=== PATIENT | female | born 1935 | race Two or more races ===

== ENCOUNTER 2018-08-13 15:34 | Inpatient (IN) | payer MEDICARE, OTHER ==
[2018-08-13] VITALS: BP 132/69
[~2018-08-13] VITALS: Ht 172.7 cm; Wt 71.5 kg
[2018-08-13 07:59] VITALS: BP 145/84
[2018-08-13 17:01] LABS: BASO # 0.1 x10^3/uL (0.0-0.2); BASO % 1 % (0-3); EOS # 0.2 x10^3/uL (0.0-0.7); EOS % 3 % (0-3); HEMATOCRIT 20.8 % (36.0-47.0); LYMPH # 1.6 x10^3/uL (1.0-4.8); LYMPH % 21 % (24-48); MEAN CORPUSCULAR HEMOGLOBIN 32 pg (25-35); MEAN CORPUSCULAR HGB CONC 33 g/dL (31-37); MEAN CORPUSCULAR VOLUME 96 fL (79-100); MONO # 0.9 x10^3/uL (0.0-1.1); MONO % 11 % (0-9); NEUT % 65 % (31-73); PLATELET COUNT 256 x10^3/uL (140-400); RED BLOOD COUNT 2.17 x10^6/uL (3.50-5.40); RED CELL DISTRIBUTION WIDTH 13.5 % (11.5-14.5); WHITE BLOOD COUNT 7.8 x10^3/uL (4.0-11.0)
[2018-08-13 17:08] LABS: HEMOGLOBIN 6.9 g/dL (12.0-15.5)
[2018-08-13 17:24] LABS: ALBUMIN/GLOBULIN RATIO 0.5 (1.0-1.7); ALK PHOS 83 U/L (46-116); ANION GAP 8 (6-14); AST (SGOT) 22 U/L (15-37); BLOOD UREA NITROGEN 32 mg/dL (7-20); BUN/CREATININE RATIO 25 (6-20); CALCIUM 8.3 mg/dL (8.5-10.1); CARBON DIOXIDE 24 mmol/L (21-32); CHLORIDE 110 mmol/L (98-107); CREATININE 1.3 mg/dL (0.6-1.0); GFR 38.9; GLUCOSE 99 mg/dL (70-99); MAGNESIUM 2.3 mg/dL (1.8-2.4); POTASSIUM 4.3 mmol/L (3.5-5.1); SODIUM 142 mmol/L (136-145); TOTAL BILIRUBIN 0.7 mg/dL (0.2-1.0); TOTAL PROTEIN 6.2 g/dL (6.4-8.2)
[2018-08-13 17:25] LABS: ALT (SGPT) < 6 U/L (14-59)
--- NOTE | 2018-08-13 17:32 | PHYS DOC ---
Past History Past Medical History: Constipation, CVA, CA, Renal Failure Past Surgical History: Other Smoking: Non-smoker Alcohol Use: None Drug Use: None Adult General Chief Complaint Chief Complaint: low hemoglobin HPI HPI Patient is a 83 year old female who brought in from [facility] by EMS because of hemoglobin of 6.9. Patient had a fall on August 06 with left upper extremity fracture and surgery on August 08 at [facility]. Patient was discharged from [facility] to [facility] yesterday. Patient had abnormal hemoglobin of 6.9 at [facility] and sent to emergency room. Patient had hemoglobin of 7.9 at [facility]. Patient denies chest pain, shortness of breath , hematemesis or melena, history of GI bleeding. Patient mainly was on her bed and denies dizziness and lightheadedness. Review of Systems Review of Systems Constitutional: Denies fever or chills [] Eyes: Denies change in visual acuity, redness, or eye pain [] HENT: Denies nasal congestion or sore throat [] Respiratory: Denies cough or shortness of breath [] Cardiovascular: No additional information not addressed in HPI [] GI: Denies abdominal pain, nausea, vomiting, bloody stools or diarrhea [] : Denies dysuria or hematuria [] Musculoskeletal: Denies back pain or joint pain [] Integument: Denies rash or skin lesions [] Neurologic: Denies headache, focal weakness or sensory changes [] Endocrine: Denies polyuria or polydipsia [] All other systems were reviewed and found to be within normal limits, except as documented in this note. Allergies Allergies Allergies Coded Allergies Type Severity Reaction Last Updated Verified No Known Drug Allergies 11/09/13 No Physical Exam Physical Exam Constitutional: Well developed, mild acute distress, non-toxic, pallor, loops ill. HENT: Normocephalic, atraumatic Eyes: PERRLA, EOMI, conjunctiva normal, no discharge. [] Neck: Normal range of motion, no tenderness, supple, no stridor. [] Cardiovascular:Heart rate regular rhythm, no murmur [] Lungs & Thorax: Bilateral breath sounds clear to auscultation [] Abdomen: Bowel sounds normal, soft, no tenderness, no masses, no pulsatile masses. 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 Skin: Warm, dry, no erythema, no rash. [] Back: No tenderness, no CVA tenderness. [] Extremities: Left upper extremity in a long arm cast, no tenderness, no cyanosis , no clubbing, ROM intact Neurologic: Alert and oriented X 3, normal motor function, normal sensory function, no focal deficits noted. [] Current Patient Data Lab Results Laboratory Tests Test 08/13/18 16:47 White Blood Count 7.8 x10^3/uL (4.0-11.0) Red Blood Count 2.17 x10^6/uL (3.50-5.40) L Hemoglobin 6.9 g/dL (12.0-15.5) *L Hematocrit 20.8 % (36.0-47.0) L Mean Corpuscular Volume 96 fL (79-100) Mean Corpuscular Hemoglobin 32 pg (25-35) Mean Corpuscular Hemoglobin Concent 33 g/dL (31-37) Red Cell Distribution Width 13.5 % (11.5-14.5) Platelet Count 256 x10^3/uL (140-400) Neutrophils (%) (Auto) 65 % (31-73) Lymphocytes (%) (Auto) 21 % (24-48) L Monocytes (%) (Auto) 11 % (0-9) H Eosinophils (%) (Auto) 3 % (0-3) Basophils (%) (Auto) 1 % (0-3) Neutrophils # (Auto) 5.0 x10^3uL (1.8-7.7) Lymphocytes # (Auto) 1.6 x10^3/uL (1.0-4.8) Monocytes # (Auto) 0.9 x10^3/uL (0.0-1.1) Eosinophils # (Auto) 0.2 x10^3/uL (0.0-0.7) Basophils # (Auto) 0.1 x10^3/uL (0.0-0.2) Prothrombin Time < 9.3 SEC (9.4-11.4) L Prothrombin Time INR 0.9 (0.9-1.1) PTT 25 SEC (23-33) Sodium Level 142 mmol/L (136-145) Potassium Level 4.3 mmol/L (3.5-5.1) Chloride Level 110 mmol/L (98-107) H Carbon Dioxide Level 24 mmol/L (21-32) Anion Gap 8 (6-14) Blood Urea Nitrogen 32 mg/dL (7-20) H Creatinine 1.3 mg/dL (0.6-1.0) H Estimated GFR (Cockcroft-Gault) 38.9 BUN/Creatinine Ratio 25 (6-20) H Glucose Level 99 mg/dL (70-99) Lactic Acid Level 0.9 mmol/L (0.4-2.0) Calcium Level 8.3 mg/dL (8.5-10.1) L Magnesium Level 2.3 mg/dL (1.8-2.4) Total Bilirubin 0.7 mg/dL (0.2-1.0) Aspartate Amino Transferase (AST) 22 U/L (15-37) Alanine Aminotransferase (ALT) < 6 U/L (14-59) L Alkaline Phosphatase 83 U/L (46-116) Troponin I Quantitative 0.020 ng/mL (0-0.055) AZ-Sxc-Y-Type Natriuretic Peptide 2211 pg/mL (0-449) H Total Protein 6.2 g/dL (6.4-8.2) L Albumin 2.0 g/dL (3.4-5.0) L Albumin/Globulin Ratio 0.5 (1.0-1.7) L EKG EKG [] Radiology/Procedures Radiology/Procedures [] Course & Med Decision Making Course & Med Decision Making Pertinent Labs and Imaging studies reviewed. (See chart for details) Evaluation of patient in ER showed 83-year-old female patient with history of recent fall and left arm surgery brought in because of hemoglobin of 6.9 at [facility]. Patient was. And had hemoglobin of 6.[address] Cordova accepted admission at 1722. Patient and her family informed about plan of care and needs for hospitalization for blood transfusion. Dragon Disclaimer Dragon Disclaimer This electronic medical record was generated, in whole or in part, using a voice recognition dictation system. Departure Departure: Impression: Primary Impression: Anemia Additional Impressions: Renal insufficiency CHF (congestive heart failure) Disposition: 09 ADMITTED INPATIENT (at 1725) Admitting Physician: Damian Cordova (accepted admission at 1722) Condition: GUARDED Referrals: NON,STAFF (PCP) Problem Qualifiers ANSELMO REESE MD Aug 13, 2018 17:32
[2018-08-13 18:45] VITALS: BP 118/59
[2018-08-13] MEDS ORDERED: MORPHINE SULFATE 2 MG/ML DISP.SYRIN. IM PRN (19:00)
[2018-08-13 19:07] LABS: FECAL OB PT POSITIVE (NEG)
[2018-08-13] MEDS ORDERED: MORPHINE SULFATE 2 MG/ML DISP.SYRIN. IV PRN ×2 (20:14→20:45)
[2018-08-13 22:43] VITALS: BP 116/74
[2018-08-13 23:57] VITALS: BP 132/69
[2018-08-14] VITALS (15 sets, daily range): BP systolic 94–146; BP diastolic 54–72
[2018-08-14] MEDS ORDERED: FUROSEMIDE 20 MG/2 ML VIAL IVP ONE ×2 (06:45→11:30)
[2018-08-14] MEDS: MORPHINE SULFATE 4 MG/ML DISP.SYRIN. IV PRN ×3 (08:23→15:15)
[2018-08-14 09:43] LABS: BASO # 0.1 x10^3/uL (0.0-0.2); BASO % 1 % (0-3); EOS # 0.2 x10^3/uL (0.0-0.7); EOS % 3 % (0-3); HEMATOCRIT 31.2 % (36.0-47.0); HEMOGLOBIN 10.6 g/dL (12.0-15.5); LYMPH # 1.3 x10^3/uL (1.0-4.8); LYMPH % 17 % (24-48); MEAN CORPUSCULAR HEMOGLOBIN 31 pg (25-35); MEAN CORPUSCULAR HGB CONC 34 g/dL (31-37); MEAN CORPUSCULAR VOLUME 91 fL (79-100); MONO # 0.8 x10^3/uL (0.0-1.1); MONO % 11 % (0-9); NEUT # 4.9 x10^3uL (1.8-7.7); NEUT % 68 % (31-73); PLATELET COUNT 281 x10^3/uL (140-400); RED BLOOD COUNT 3.43 x10^6/uL (3.50-5.40); RED CELL DISTRIBUTION WIDTH 14.6 % (11.5-14.5); WHITE BLOOD COUNT 7.3 x10^3/uL (4.0-11.0)
[2018-08-14] MEDS ORDERED: FAMOTIDINE 20 MG/2 ML VIAL IVP SCH (09:45)
[2018-08-14] MEDS ORDERED: ESZO3TAB28 PO (10:33)
[2018-08-14] MEDS ORDERED: TRAM50TA PO (10:33)
[2018-08-14] MEDS ORDERED: SENN1TAB99 PO (10:33)
[2018-08-14] MEDS ORDERED: ATOR40TA59 PO (10:33)
[2018-08-14] MEDS ORDERED: OMEG-33 PO (10:33)
[2018-08-14] MEDS ORDERED: CEFD300C PO (10:33)
[2018-08-14] MEDS ORDERED: POLY2500 PO (10:33)
[2018-08-14] MEDS ORDERED: CITA20TA6 PO (10:33)
[2018-08-14] MEDS ORDERED: METH-37 PO (10:33)
[2018-08-14] MEDS ORDERED: CLOP75TA57 PO (10:33)
[2018-08-14] MEDS ORDERED: LORA0.5T PO (10:33)
[2018-08-14] MEDS ORDERED: ASPI-630 PO (10:33)
[2018-08-14] MEDS ORDERED: LUBI8CAP4 PO (10:33)
[2018-08-14] MEDS ORDERED: ACET325T9 PO (10:33)
[2018-08-14] MEDS ORDERED: BACI3.5O8 TOP (10:35)
[2018-08-14] MEDS ORDERED: traMADol 50 MG TABLET PO SCH (11:00)
--- NOTE | 2018-08-14 11:44 | HP ---
ADMIT DATE: 08/14/2018 HISTORY OF PRESENT ILLNESS: An 83-year-old female [facility]. She apparently 08/06/2018, she had a left upper extremity fracture surgery at on 08/08/2018. She was brought home on 08/12/2018 to the [facility]. The patient was noted to be extremely weak and tired. They repeated her hemoglobin, which had come down from 7.9 at down to 6.9. The patient had positive Hemoccult. She does have a history of GI bleed. The patient was very weak and she was admitted to the hospital for a possible acute GI bleed versus bleeding from her post-procedural repair of her left upper arm. The wrapping around and the splint around the left arm was saturated with blood. The patient was admitted for transfusion as well as further evaluation on this patient. PAST MEDICAL HISTORY: She has had history of stroke, coronary artery disease. She has had coronary stent placement. She has had a pacemaker. 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 She has had hysterectomy, chronic kidney disease, incontinence. She has chronic degenerative arthritis. She had orthopedic surgery to the left arm and elbow with plates and pins on 08/10/2018, fractured left arm on 08/06/2018 and she has some history of tardive dyskinesia. Her immunization for flu is up-to-date. ALLERGIES: She has allergies to ORAL AND IVP DYE, METOCLOPRAMIDE, SULFUR, and trimethoprim. The patient's code status is full code. MEDICATIONS: At least from the [facility] include cefdinir 300 mg q.12 for 10 days, Robaxin 500 p.o. b.i.d., Plavix 75 mg daily, Lipitor 40 mg daily, omega 3, aspirin 81, tramadol 50, Tylenol p.r.n., Celexa 20, Lorazepam 0.5 at bedtime, Lunesta 1 mg at bedtime, bacitracin, Amitiza 8 mcg p.o. b.i.d., polyethylene glycol as well. FAMILY HISTORY: Noncontributory. SOCIAL HISTORY: No history of smoking, alcohol or drug use. REVIEW OF SYSTEMS: The patient complains of some pain in that left arm. Otherwise, denies headaches, visual changes. Does have some shortness of breath. Denies chest pain. Denies abdominal pain. Denies having blood in her stool, but Hemoccult is positive and of course pain in the left arm, but she has a good pulse and the like in that arm itself. PHYSICAL EXAMINATION: GENERAL: This is a pleasant female. She looks very tired and weak, frail. VITAL SIGNS: Blood pressure 112/70, respiratory rate 18, pulse 87. She is afebrile. HEENT: The patient's head was atraumatic, normocephalic. Eyes: PERRL. Throat poor dentition. NECK: Supple. LUNGS: Show some decreased breath sounds and rales noted. CARDIOVASCULAR: Regular sinus rhythm. ABDOMEN: Soft, scaphoid, nontender, no rebounding, no guarding. Positive bowel sounds, no hepatosplenomegaly noted. Stool hemoccult positive. SKIN: Warm and dry. Marked atrophy to the musculoskeletal system left upper extremity, left arm long cast with marked dried blood along the outline splint that she used to keep the bandages in place. NEUROLOGIC: The patient is somewhat diminished, but alert and oriented to baseline for her. LABORATORY DATA: As noted show hemoglobin of 6.9. White count 7.8, hematocrit 20. Chemistries outside of a decrease in her renal function, GFR of 39, unremarkable. Calcium slightly low at 8.3, but she has a low albumin of 2. Her BNP was elevated at 2200 and her troponin was 0.02. Coags unremarkable. Stool hemoccult positive. The patient will be admitted for further evaluation and blood transfusion 2 units packed RBCs. Get chest x-ray final report on that is pending, although initially looked like she may have some mild pulmonary congestion. IMPRESSION: Anemia, possibly secondary to acute gastrointestinal bleed, also bleed post-procedural for fracture to the left upper arm postoperative, chronic kidney disease stage 3, cattle hypocalcemia, severe protein malnutrition, could be that the patient is on anticoagulation for previous history of stroke, may need to come off it temporarily to assess possible GI bleed. We will go ahead and continue on Pepcid IV q.12. Your additional dose of Lasix for possible CHF. Would need further workup on this; however, family would like to get her back to and will try to get her transferred down there before any major further evaluation is performed here at assess cardiovascular situation as well as GI situation since neither of those are available at this facility at this time. The patient is comfortable. She was in quite a bit of pain when she came in, we gave her some IV morphine 2 mg IV every 2 and that seems to have helped her with her pain. PLAN: As above, but also try to get her down to [facility] for further evaluation by ortho, GI, and Cardio. VIOLET MONTES MD DR: CARY/melissa JOB#: [id number] / [id number]
[2018-08-14] MEDS: BACITRACIN/POLYMYXIN B OPHTH OINTMENT 3.5GM TUBE. OU SCH ×2 (12:00→16:00)
[2018-08-14] MEDS: ACETAMINOPHEN 325 MG TABLET PO SCH ×2 (12:00→16:00)
[2018-08-14] MEDS ORDERED: IPRATRPIUM/ALBUTEROL 0.5/2.5MG 3 ML NEBU. NEB SCH (12:00)
--- NOTE | 2018-08-14 12:11 | RAD ---
Indication:Shortness of breath TECHNIQUE:Portable AP chest X-ray COMPARISON: Study from the same day earlier FINDINGS: Patient is significantly rotated to the left side. Heart is normal in size. Lungs are hyperinflated with interstitial opacities. No pneumothorax. Visualized bony thorax within normal limits. IMPRESSION: Suboptimal positioning. Findings of COPD. Superimposed atypical/viral infection not ruled out. Electronically signed by: Santos Interiano DO (08/14/2018 12:07 PM) [facility]
[2018-08-14] MEDS ORDERED: OMEGA-3 FATTY ACIDS/FISH OIL 1,000 MG CAPSULE. PO SCH (17:00)
[2018-08-14] MEDS ORDERED: NON FORMULARY ITEM (Lubiprostone (Amitiza) 8 MCG) PO SCH (17:00)
[2018-08-14] MEDS ORDERED: LORazepam 0.5 MG TABLET PO SCH (21:00)
[2018-08-14] MEDS ORDERED: METHOCARBAMOL 500 MG TABLET PO SCH (21:00)
[2018-08-14] MEDS ORDERED: SENNOSIDES/DOCUSATE 8.6/50MG TABLET. PO SCH (21:00)
[2018-08-14] MEDS ORDERED: ZOLPIDEM 5 MG TABLET. PO SCH (21:00)
[2018-08-14] MEDS ORDERED: CEFDINIR 300 MG CAPSULE PO SCH (21:00)
[2018-08-15] MEDS ORDERED: CLOPIDOGREL BISULFATE 75 MG TABLET PO SCH (09:00)
[2018-08-15] MEDS ORDERED: POLYETHYLENE GLYCOL 3350 17 GM PACKET. PO SCH (09:00)
[2018-08-15] MEDS ORDERED: CITALOPRAM 20 MG TABLET. PO SCH (09:00)
== END 2018-08-14 16:55 | disposition short-term general hospital (02) | DRG 377 ==
LOC: ER 15:34 → 1 SOUTH 19:16
PROVIDERS: ADMIT Family Medicine; ATTEND Family Medicine
PROC: 30233N1 Transfusion of Nonautologous Red Blood Cells into Peripheral Vein, Percutaneous Approach (ICD-10-PCS; principal; 2018-08-14)
DX: K92.2 Gastrointestinal hemorrhage, unspecified (principal); E43 Unspecified severe protein-calorie malnutrition; D62 Acute posthemorrhagic anemia; I13.0 Hypertensive heart and chronic kidney disease with heart failure and stage 1 through stage 4 chronic kidney disease, or unspecified chronic kidney disease; I25.2 Old myocardial infarction; I50.9 Heart failure, unspecified; I25.10 Atherosclerotic heart disease of native coronary artery without angina pectoris; N18.3 Chronic kidney disease, stage 3 (moderate); M19.90 Unspecified osteoarthritis, unspecified site; E83.51 Hypocalcemia; Z86.73 Personal history of transient ischemic attack (TIA), and cerebral infarction without residual deficits; Z95.5 Presence of coronary angioplasty implant and graft; Z90.710 Acquired absence of both cervix and uterus; Z95.0 Presence of cardiac pacemaker; Z79.01 Long term (current) use of anticoagulants; Z88.2 Allergy status to sulfonamides; Z88.8 Allergy status to other drugs, medicaments and biological substances; Z91.041 Radiographic dye allergy status
CPT/HCPCS: 36415; 71045; 80053; 82274; 83605; 83735; 83880; 84484; 85025; 85610; 85730; 86850; 86900; 86901; 86920; 87040; 87641; 94640; 99285; J2270; J3490; J7620; P9016

== ENCOUNTER 2018-09-10 11:12 | Inpatient (IN) | payer MEDICARE, OTHER ==
[~2018-09-10] VITALS: Ht 165.1 cm; Wt 65.0 kg
[~2018-09-10 11:12] MED LIST: ACET325T9 PO; ASPI-630 PO; ATOR40TA59 PO; BACI3.5O8 TOP; CEFD300C PO; CITA20TA6 PO; CLOP75TA57 PO; ESZO3TAB28 PO; LORA0.5T PO; LUBI8CAP4 PO; METH-37 PO; OMEG-33 PO; POLY2500 PO; SENN1TAB99 PO; TRAM50TA PO
--- NOTE | 2018-09-10 11:55 | NUR ---
Admit to room 124 via cart accompanied by emt's from [place]. Alert with some confusion, vs stable, no c/o pain at this time. Oriented to room and explained all procedures.
[2018-09-10 12:04] VITALS: BP 140/77
[2018-09-10] MEDS ORDERED: LIDOCAINE 1% Multi-Dose 20 ML VIAL. ONE (13:43)
[2018-09-10] MEDS ORDERED: OMEG1CAP2 PO (13:50)
[2018-09-10] MEDS ORDERED: PANT40TA5 PO (13:50)
[2018-09-10] MEDS ORDERED: TRAM50TA PO (13:50)
[2018-09-10] MEDS ORDERED: CITA40TA12 PO (13:52)
[2018-09-10] MEDS ORDERED: LEVO750T5 PO (13:52)
[2018-09-10] MEDS ORDERED: traMADol 50 MG TABLET PO PRN (14:15)
[2018-09-10] MEDS ORDERED: ACETAMINOPHEN 325 MG TABLET PO PRN (14:15)
[2018-09-10 14:53] VITALS: BP 101/60
--- NOTE | 2018-09-10 15:00 | NUR ---
Numerous attempts to start a peripheral iv without being accomplished. Dr Zuleta attempted a central line in right side of neck without being able to. No one pharmacy technician infusion for picc placement. Dr. Zuleta planning to transfer to [facility] where a line can be started. Pts daughter aware and agreed.
--- NOTE | 2018-09-10 15:19 | RAD ---
EXAM: CHEST 1 VIEW. HISTORY: Central line attempt. Rule out pneumothorax. COMPARISON: 08/14/2018. FINDINGS: A frontal view of the chest is obtained. A left-sided pacemaker has its leads in the right atrium and right ventricle. There is rotation to the left. Cholecystectomy clips are noted. Retrocardiac opacity appears unchanged and may reflect atelectasis or infiltrate. There is no pneumothorax or pleural effusion. The heart is not enlarged. There are atherosclerotic calcifications of the aorta. IMPRESSION: 1. No pneumothorax. Retrocardiac atelectasis or infiltrate. Electronically signed by: Cora Wilson MD (09/10/2018 3:17 PM) [facility] [place]
--- NOTE | 2018-09-10 15:31 | SSS ---
ADMIT DATE: 09/10/2018 HISTORY OF PRESENT ILLNESS: The patient is an 83-year-old female patient, a resident at [facility], who was admitted directly to [facility]. She was noted to be dehydrated. Her kidney function had deteriorated. Her creatinine has risen from 1.1 to 1.9. She was refusing to eat and drink, we did attempt [facility] and [facility], so she was admitted directly here and multiple nurses have attempted to put a central line. Unfortunately, we can only use her right upper extremity as she has a broken elbow and humerus in the left side and she cannot position her arm in a comfortable way for us to put an IV line. I attempted to put a central line; unfortunately, I managed to get into the vein, but when I tried to introduce the guidewire, it did not go smoothly, so I stopped attempting and I spoke with her daughter and son that the only option available for us is to transfer her to [facility] as there is an electronic parts designer that can put a central line for us and we can rehydrate her. The patient herself did not have any complaint. She has been anorexic, has been refusing to eat or drink and probably is one reason for her dehydration. I hoped to consult Dr. Pichardo to assist with her depression, but obviously lack of vascular access forced us to transfer her to [place]. PAST MEDICAL HISTORY: Significant for coronary artery disease, status post myocardial infarction, status post cardiac arrest. She has also chronic kidney disease, cerebrovascular accident, TIA. PAST SURGICAL HISTORY: Significant for what seemed to be a pacemaker placement versus AICD. ALLERGIES: She is allergic to IODINE, AND REGLAN. MEDICATIONS: She is currently on following medications: She is currently on levofloxacin 750 mg every other day, methocarbamol for Robaxin 500 mg twice a day, atorvastatin calcium 40 mg at bedtime, omega-3 fatty acid for Lovaza 1 capsule twice a day. She is on aspirin 81 mg once a day, tramadol 50 mg IV twice a day, acetaminophen 650 mg every 4 hours, citalopram hydrobromide for Celexa 40 mg p.o. daily. She is on lorazepam 0.5 mg at bedtime. She is on Lunesta 1 mg at bedtime and Amitiza 8 mcg p.o. b.i.d. with meals for constipation. She is on Senna-S 1 capsule twice a day and Protonix 40 mg once a day, polyethylene glycol 17 g daily p.r.n. for constipation. FAMILY HISTORY: Noncontributory. SOCIAL HISTORY: She is ; used to live with her daughter, currently resides at [facility]. She does not smoke, drink alcohol or use any recreational drugs. REVIEW OF SYSTEMS: As per history of present illness. PHYSICAL EXAMINATION: GENERAL: On arrival to the hospital, the patient was resting slightly propped up in bed, in no apparent respiratory distress. She is pale, no jaundice, cyanosis, or thyromegaly. No jugular venous distension. No limb edema. VITAL SIGNS: Her heart rate was 77, blood pressure was 140/77, temperature was 97.6, respiratory rate was 20, and oxygen saturation was 92%. HEAD, EYES, EARS, NOSE, AND THROAT: Showed normocephalic, atraumatic. NECK: Supple. HEART: Showed normal first and second heart sounds. No gallop, rub or murmur. CHEST: Clear to auscultation. No crepitation or rhonchi. ABDOMEN: Scaphoid, soft, nontender. NEUROLOGIC: She was awake, alert, responding appropriately. All cranial nerves intact. EXTREMITIES: She moves extremities without difficulty. She ambulates without assistance or assistive devices. She is actually mostly bed bound, wheelchair bound. LABORATORY DATA: Her lab work done at [facility] as of yesterday showed her serum sodium 138, potassium 4.3, chloride 100, bicarbonate 26, glucose was 113, BUN 33, creatinine 1.9 which has risen from 1.1. Her calcium was 9.2. Total protein 7.3, albumin 3.5. Total bilirubin, AST, ALT were normal. Alkaline phosphatase slightly elevated. Her estimated GFR was 24.5 mL per minute. Her most recent white cell count was 9300, hemoglobin 12.8, hematocrit 39, MCV 94 and platelet count of 213,000. Her urinalysis showed the urine was yellow, turbid with a specific gravity of 1.025, a pH of 5.5. The urine was positive for leukocyte, more than 50 wbc's, 3-6, rbc's and too many bacteria. ASSESSMENT AND PLAN: The patient will be transferred to [facility] for acute on chronic kidney injury, urinary tract infection. Other medical problems include chronic kidney disease, coronary artery disease, status post myocardial infarction, cerebrovascular accident, and transient ischemic attack. We will consult the electronic parts designer to place a central line and would continue with IV fluid for rehydration and IV antibiotic for urinary tract infection. JENI BURNS MD DR: DEVIN/melissa JOB#: [id number] / [id number]
--- NOTE | 2018-09-10 16:24 | NUR ---
Discharge to [facility] via cart accompanied by emt's. Vs stable, no c/o pain, alert with some confusion. Report called to Alisha heller at [facility], verbalized understanding.
[2018-09-10] MEDS ORDERED: NON FORMULARY ITEM (Lubiprostone (Amitiza) 8 MCG) PO SCH (17:00)
[2018-09-10] MEDS ORDERED: METHOCARBAMOL 500 MG TABLET PO SCH (21:00)
[2018-09-10] MEDS ORDERED: OMEGA-3 FATTY ACIDS/FISH OIL 1,000 MG CAPSULE. PO SCH (21:00)
[2018-09-10] MEDS ORDERED: SENNOSIDES/DOCUSATE 8.6/50MG TABLET. PO SCH (21:00)
[2018-09-10] MEDS ORDERED: ATORVASTATIN CALCIUM 20 MG TABLET PO SCH (21:00)
[2018-09-10] MEDS ORDERED: ZOLPIDEM 5 MG TABLET. PO SCH (21:00)
[2018-09-10] MEDS ORDERED: traMADol 50 MG TABLET PO SCH (21:00)
[2018-09-10] MEDS ORDERED: LORazepam 0.5 MG TABLET PO SCH (21:00)
[2018-09-11] MEDS ORDERED: PANTOPRAZOLE 40 MG TABLET. PO SCH (07:30)
[2018-09-11] MEDS ORDERED: ASPIRIN 81 MG TAB.CHEW PO SCH (08:00)
[2018-09-11] MEDS ORDERED: POLYETHYLENE GLYCOL 3350 17 GM PACKET. PO SCH (09:00)
[2018-09-11] MEDS ORDERED: levoFLOXacin 750 MG TABLET PO SCH (09:00)
[2018-09-11] MEDS ORDERED: CITALOPRAM 20 MG TABLET. PO SCH (09:00)
== END 2018-09-10 16:24 | disposition short-term general hospital (02) | DRG 683 ==
LOC: 1 SOUTH 11:12
PROVIDERS: ADMIT Internal Medicine; ATTEND Internal Medicine
DX: N17.9 Acute kidney failure, unspecified (principal); N39.0 Urinary tract infection, site not specified; E86.0 Dehydration; N18.9 Chronic kidney disease, unspecified; F32.9 Major depressive disorder, single episode, unspecified; I25.10 Atherosclerotic heart disease of native coronary artery without angina pectoris; I25.2 Old myocardial infarction; Z86.73 Personal history of transient ischemic attack (TIA), and cerebral infarction without residual deficits; Z86.74 Personal history of sudden cardiac arrest
CPT/HCPCS: 71045